=== PATIENT | female | born 1970 | race Caucasian/White ===

== ENCOUNTER 2017-04-08 19:37 | Emergency (ER) | payer MEDICARE ==
[2017-04-08 19:45] VITALS: BP 148/88; PULSE 91; RESP 20; TEMP 98.1; O2SAT 97
[2017-04-08] MEDS ORDERED: PLAQ200T PO (21:23)
[2017-04-08] MEDS ORDERED: NEUR300C PO (21:23)
[2017-04-08] MEDS ORDERED: LIPI20TA PO (21:24)
[2017-04-08] MEDS ORDERED: TRAM50TA PO (21:24)
[2017-04-08 21:30] VITALS: BP 128/87; PULSE 84; RESP 16; O2SAT 96
[2017-04-08] MEDS ORDERED: ONDANSETRON HCL 4 MG/2 ML VIAL IV PUSH ONE (21:30)
[2017-04-08] MEDS ORDERED: MORPHINE SULFATE 8 MG/ML INJ IV PUSH ONE (21:30)
[2017-04-08 21:47] LABS: AUTOMATED NEUTROPHIL # 4.9 TH/MM3 (1.8-7.7); BASOPHIL # 0.1 TH/MM3 (0-0.2); BASOPHIL % 0.6 % (0.0-2.0); EOSINOPHIL # 0.4 TH/MM3 (0-0.4); EOSINOPHIL % 4.4 % (0.0-4.0); HEMATOCRIT 47.1 % (35.0-46.0); HEMO FLAGS DIFF FINAL; LYMPH % 35.5 % (9.0-44.0); LYMPHOCYTE # 3.3 TH/MM3 (1.0-4.8); MEAN CELL VOLUME 87.7 FL (80.0-100.0); MEAN CORPUSCULAR HEMOGLOBIN 29.8 PG (27.0-34.0); MONO % 7.2 % (0.0-8.0); NEUT % 52.3 % (16.0-70.0); PLATELET COUNT 169 TH/MM3 (150-450); RED BLOOD COUNT 5.37 MIL/MM3 (4.00-5.30); RED CELL DISTRIBUTION WIDTH 12.8 % (11.6-17.2); WHITE BLOOD COUNT 9.4 TH/MM3 (4.0-11.0)
[2017-04-08 21:52] LABS: CHLORIDE 106 MEQ/L (98-107); SODIUM (NA) 138 MEQ/L (136-145)
[2017-04-08 21:56] LABS: ANION GAP 7 MEQ/L (5-15); BICARBONATE 25.5 MEQ/L (21.0-32.0); BLOOD UREA NITROGEN 17 MG/DL (7-18)
[2017-04-08 21:59] LABS: ALT (GPT) 38 U/L (10-53); AST (GOT) 33 U/L (15-37); GLOMERULAR FILTRATION RATE 40 ML/MIN (>89)
[2017-04-08 22:01] LABS: TOTAL BILIRUBIN ADULT 0.3 MG/DL (0.2-1.0)
[2017-04-08 22:02] LABS: ALKALINE PHOSPHATASE 93 U/L (45-117)
[2017-04-08 22:30] VITALS: BP 138/88; PULSE 90; RESP 18; O2SAT 96
--- NOTE | 2017-04-08 22:31 | RADRPT ---
EXAM DATE/TIME: 04/08/2017 22:02 [facility] COMPARISON: No previous studies available for comparison. INDICATIONS : Pain and swelling in 3rd -5th digit on right foot. MEDICAL HISTORY : Lupus, Cervical Ca SURGICAL HISTORY : Hysterectomy. ENCOUNTER: Initial ACUITY: 1 week PAIN SCORE: 9/10 LOCATION: Right Foot, 3rd-5th digit. FINDINGS: This presentation of the first and second distal toes. The soft tissue swelling at the third through fourth toes and destruction. No fracture or dislocation. CONCLUSION: 1. Soft tissue swelling of the third through fifth toes. Previous partial amputation first and second toes. Nicholas Woo MD on April 08, 2017 at 22:29 Board Certified Radiologist. This report was verified electronically.
--- NOTE | 2017-04-08 22:49 | PD ---
HPI . Right foot pain Chief Complaint: Pain: Acute or Chronic Time Seen by Provider: 21:10 Travel History International Travel<30 days: No Contact w/Intl Traveler<30days: No Traveled to known affect area: No History of Present Illness HPI This patient is a 47 year old female with PMH of Lupus and RA presents to [facility] ED with 5 days of increasing right foot pain. Her first and second toes were amputated earlier this year due to vascular compromise. The pain starts around the 3rd-5th remaining digits and extends proximally up her right foot. The pain is described as numbness, tingling and burning. The pain is constant and is rated a 10/10. She has noticed some swelling as well and complains of cold extremity. She denies any trauma or rash. She denies any fevers or chills but admits to diaphoresis and nausea. She is scheduled to meet with a vascular surgeon May 06. She saw her PCP on Wednesday who prescribed Tramadol which she says has not been working for the pain. She has a history of smoking, 1PDD, denies any alcohol use. She is allergic to Sulfa drugs. PFSH Past Medical History Arthritis: Yes (RA ) Autoimmune Disease: Yes (Lupus, Autoimmune CAH ) Cancer: Yes (Cervical cancer) High Cholesterol: Yes Diminished Hearing: No Tetanus Vaccination: < 5 Years Influenza Vaccination: No ?: Unknown Menopausal: Yes Tubal Ligation: Yes Past Surgical History Appendectomy: Yes Coronary Stent: Yes (Iliac artery stent ) Hysterectomy: Yes (Full and partial ) Other Surgery: Yes (Right foot big toe and 2nd toe amputation) Social History Alcohol Use: No Tobacco Use: Yes (1 ppd) Substance Use: No Allergies-Medications (Allergen,Severity, Reaction): Coded Allergies: Sulfa (Sulfonamide Antibiotics) (Verified Allergy, Unknown, 04/08/17) Reported Meds & Prescriptions Reported Meds & Active Scripts Active Reported Tramadol (Tramadol HCl) 50 Mg Tab 50 Mg PO Q6H PRN Lipitor (Atorvastatin Calcium) 20 Mg Tab 20 Mg PO HS Plaquenil (Hydroxychloroquine Sulfate) 200 Mg Tab 200 Mg PO BID Take with food Neurontin (Gabapentin) 300 Mg Cap 300 Mg PO TID Review of Systems Except as stated in HPI: all other systems reviewed are Neg General / Constitutional: No: Fever, Chills Cardiovascular: No: Chest Pain or Discomfort Respiratory: No: Shortness of Breath Gastrointestinal: Positive: Nausea, No: Vomiting, Diarrhea, Abdominal Pain Musculoskeletal: Positive: Edema, Pain, No: Weakness Skin: Positive Change in Pigmentation (Purple), No Rash Physical Exam Narrative GENERAL: Patient is seen on exam bed, she is in no acute distress. She is alert and oriented x3 SKIN: Right 4th-5th digit cyanotic and edematous, cool to the touch, right distal foot slightly edematous but not erythematous. HEAD: Atraumatic. Normocephalic. EYES: Pupils equal and round. ENT: No nasal bleeding or discharge. Mucous membranes pink and moist. NECK: Trachea midline. CARDIOVASCULAR: Regular rate and rhythm. RESPIRATORY: No accessory muscle use. Clear to auscultation bilaterally. GASTROINTESTINAL: Abdomen soft, non-tender, nondistended. MUSCULOSKELETAL: No obvious deformities. No edema. NEUROLOGICAL: Awake and alert. No obvious cranial nerve deficits. Motor grossly within normal limits. Normal speech. PSYCHIATRIC: Appropriate mood and affect; insight and judgment normal. Data Data Last Documented VS Vital Signs Date Time Temp Pulse Resp B/P Pulse Ox O2 Delivery O2 Flow Rate FiO2 04/08/17 22:30 90 18 138/88 96 Room Air 04/08/17 19:45 98.1 Orders Foot, Complete (Vjk0tex) (04/08/17 21:24) Complete Blood Count With Diff (04/08/17 21:24) Comprehensive Metabolic Panel (04/08/17 21:24) Blood Culture (04/08/17 21:24) ^ Saline Lock (04/08/17 21:24) Morphine Inj (Morphine Inj) (04/08/17 21:30) Ondansetron Inj (Zofran Inj) (04/08/17 21:30) Cta Runoff W Iv Contrast W 3d (04/08/17 ) Iohexol 350 Inj (Omnipaque 350 Inj) (04/08/17 23:04) Labs Laboratory Tests Test 04/08/17 21:35 White Blood Count 9.4 TH/MM3 Red Blood Count 5.37 MIL/MM3 Hemoglobin 16.0 GM/DL Hematocrit 47.1 % Mean Corpuscular Volume 87.7 FL Mean Corpuscular Hemoglobin 29.8 PG Mean Corpuscular Hemoglobin 34.0 % Concent Red Cell Distribution Width 12.8 % Platelet Count 169 TH/MM3 Mean Platelet Volume 8.6 FL Neutrophils (%) (Auto) 52.3 % Lymphocytes (%) (Auto) 35.5 % Monocytes (%) (Auto) 7.2 % Eosinophils (%) (Auto) 4.4 % Basophils (%) (Auto) 0.6 % Neutrophils # (Auto) 4.9 TH/MM3 Lymphocytes # (Auto) 3.3 TH/MM3 Monocytes # (Auto) 0.7 TH/MM3 Eosinophils # (Auto) 0.4 TH/MM3 Basophils # (Auto) 0.1 TH/MM3 CBC Comment DIFF FINAL Differential Comment Sodium Level 138 MEQ/L Potassium Level 4.0 MEQ/L Chloride Level 106 MEQ/L Carbon Dioxide Level 25.5 MEQ/L Anion Gap 7 MEQ/L Blood Urea Nitrogen 17 MG/DL Creatinine 1.40 MG/DL Estimat Glomerular Filtration 40 ML/MIN Rate Random Glucose 102 MG/DL Calcium Level 9.5 MG/DL Total Bilirubin 0.3 MG/DL Aspartate Amino Transf 33 U/L (AST/SGOT) Alanine Aminotransferase 38 U/L (ALT/SGPT) Alkaline Phosphatase 93 U/L Total Protein 7.9 GM/DL Albumin 3.9 GM/DL [facility] Medical Decision Making Medical Screen Exam Complete: Yes Emergency Medical Condition: Yes Medical Record Reviewed: No Differential Diagnosis Cellulitis, osteomyelitis, vasculitis, acute ischemia Narrative Course Patient presents for evaluation treatment of pain in her right third, fourth and fifth toes. She has had previous amputation of the first and second toes because of vascular disease. She states that her third, fourth and fifth toes now feel very similar to the way that her first and second toes felt prior to amputation. Her exam is compatible with vascular compromise. The toes are discolored and cool to the touch. CBC & BMP Diagram 04/08/17 21:35 Last Impressions Foot X-Ray 04/08/172123 Signed Impressions: Service Date/Time: March 22:02 - CONCLUSION: 1. Soft tissue swelling of the third through fifth toes. Previous partial amputation first and second toes. Nicholas Woo MD Patient had the CT angiogram done prior to departure but declined waiting for the results. She was signed out AMA. Diagnosis Primary Impression: Right foot pain Disposition: 07 AGAINST MEDICAL ADVICE Fannie Ferguson MD Apr 08, 2017 22:49
[2017-04-08] MEDS ORDERED: IOHEXOL 350 MG/ML 10 ML VIAL (for RAD DIAG) IV ONE (23:04)
--- NOTE | 2017-04-09 01:08 | RADRPT ---
EXAM DATE/TIME: 04/08/2017 22:24 [facility] COMPARISON: No previous studies available for comparison. INDICATIONS : 3rd and 4th toes turning purple status post iliac stent placement in February. IV CONTRAST: 100 cc Omnipaque 350 (iohexol) IV RADIATION DOSE: 19.63 CTDIvol (mGy) MEDICAL HISTORY : Peripheral vascular disease. Lupus. Cervical cancer SURGICAL HISTORY : Appendectomy. Hysterectomy.iliac stent, big and 2nd toe amputation right side ENCOUNTER: Initial ACUITY: 2 months PAIN SCALE: 10/10 LOCATION: Right foot TECHNIQUE: Volumetric scanning was performed using a multi-row detector CT scanner. The data was post processed with a variety of visualization algorithms including full volume maximum intensity projection, multi -planar sliding thin slab reformation, curved planar reformation, and surface rendering techniques. Using automated exposure control and adjustment of the mA and/or kV according to patient size, radiat ion dose was kept as low as reasonably achievable to obtain optimal diagnostic quality images. DICO M format image data is available electronically for review and comparison. FINDINGS: ABDOMINAL AORTA: Infrarenal abdominal aortic aneurysm measuring 3-3.6 cm in diameter with regional mural thrombus. The re is ectasia of the distal abdominal aorta just above the bifurcation measuring approximately 2.4 cm in diameter. Single right with a main and accessory left renal artery. All 3 are patent. Mesenteric vessels are patent. Pelvis: Right common iliac artery stent shows some intimal hyperplasia proximally with some luminal narrowing in this region of uncertain clinical significance. Iliacs are otherwise patent Right LEG: Profunda and SFA are patent. Popliteal is patent down to the trifurcation with three-vessel runoff . LEFT LEG: Profunda and SFA are patent. Popliteal is patent down to the trifurcation with three-vessel runoff MISCELLANEOUS: Mild pectus excavating deformity of the lower chest. Diminished hepatic attenuation suggesting some d egree of fatty infiltration. Venous collaterals are seen in the left kidney which appear to emanate f rom the left gonadal vein. There are varicosities in the left pelvis surrounding what appears to be a slightly prominent left ovary. CONCLUSION: 1. 3 x 3.6 cm infrarenal abdominal aortic aneurysm with mural thrombus. More inferiorly, there is rocael e ectasia of the distal abdominal aorta just above the bifurcation measuring 2.4 cm in diameter. 2. Right common iliac artery stent shows some intimal hyperplasia proximally. On the images provided, this may be significant enough to limit flow to the right lower extremity. Catheter angiography with pressure measurements could be obtained for confirmation and treatment if clinically warranted. 3. Otherwise, the inflow is widely patent on the left. Outflow is patent bilaterally with three-vesse l runoff. 4. Single right with a main and accessory left renal artery. All 3 are patent. 5. 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 Perinephric collaterals emanate from the gonadal vein and reestablish centra l drainage. In the appropriate clinical setting, the pelvic varicosities can be associated with pelvi c congestion syndrome. 6. Hepatic fatty infiltration. 7. Pectus excavating deformity of the lower chest. Samuel Kathleen MD on April 09, 2017 at 0:50 Board Certified Radiologist. This report was verified electronically.
== END 2017-04-08 23:39 | disposition left against medical advice (07) ==
LOC: PHED 19:37
DX: M79.671 Pain in right foot (principal); M32.9 Systemic lupus erythematosus, unspecified; F17.200 Nicotine dependence, unspecified, uncomplicated
CPT/HCPCS: 73630; 75635; 80053; 85025; 87040; 96374; 96375; 99285; J2270; J2405; Q9967

== ENCOUNTER 2017-04-25 09:19 | Emergency (ER) | payer MEDICARE ==
[~2017-04-25] VITALS: Ht 165.1 cm; Wt 96.0 kg
[~2017-04-25 09:19] MED LIST: LIPI20TA PO; NEUR300C PO; PLAQ200T PO; TRAM50TA PO
[2017-04-25 09:25] VITALS: BP 164/89; PULSE 98; RESP 16; TEMP 97.6; O2SAT 97
[2017-04-25] MEDS ORDERED: IBUP200C PO (09:48)
[2017-04-25] MEDS ORDERED: PLAV75TA29 PO (09:48)
[2017-04-25] MEDS ORDERED: MUPI2%T TOPICAL (09:57)
[2017-04-25] MEDS ORDERED: CLIN1CAP5 PO (09:57)
--- NOTE | 2017-04-25 09:58 | PD ---
HPI Chief Complaint: Skin Problem Time Seen by Provider: 09:50 Travel History International Travel<30 days: No Contact w/Intl Traveler<30days: No Traveled to known affect area: No History of Present Illness HPI Patient presents with complaints of right fourth toe infection. Reports a history of multiple amputations on the same foot. Denies any nausea vomiting diarrhea or fever. Denies any rash. 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 PFSH Past Medical History Hx Anticoagulant Therapy: Yes (plavix) Arthritis: Yes (RA ) Autoimmune Disease: Yes (Lupus, Autoimmune CAH ) Cancer: Yes (Cervical cancer) High Cholesterol: Yes Diabetes: No Diminished Hearing: No Immunizations Current: Yes Tetanus Vaccination: Unknown Influenza Vaccination: No ?: Not Menopausal: Yes Tubal Ligation: Yes Past Surgical History Appendectomy: Yes Coronary Stent: Yes (Right Iliac artery stent x2, balloon) Gynecologic Surgery: Yes (x 4 for cancer) Hysterectomy: Yes (partial then full) Other Surgery: Yes (Right foot big toe and 2nd toe amputation) Social History Alcohol Use: No Tobacco Use: Yes (1/2 ppd) Substance Use: No Allergies-Medications (Allergen,Severity, Reaction): Coded Allergies: Sulfa (Sulfonamide Antibiotics) (Verified Allergy, Unknown, 04/25/17) Reported Meds & Prescriptions Reported Meds & Active Scripts Active Reported Plavix (Clopidogrel Bisulfate) 75 Mg Tab 75 Mg PO DAILY Ibuprofen 200 Mg Cap 800 Mg PO Q6-8HRS PRN Tramadol (Tramadol HCl) 50 Mg Tab 50 Mg PO Q6H PRN Lipitor (Atorvastatin Calcium) 20 Mg Tab 20 Mg PO HS Plaquenil (Hydroxychloroquine Sulfate) 200 Mg Tab 200 Mg PO BID Take with food Neurontin (Gabapentin) 300 Mg Cap 300 Mg PO TID Review of Systems General / Constitutional: No: Fever Eyes: No: Visual changes HENT: No: Headaches Cardiovascular: No: Chest Pain or Discomfort Respiratory: No: Shortness of Breath Gastrointestinal: No: Abdominal Pain Genitourinary: No: Dysuria Musculoskeletal: No: Pain Skin: No Rash Neurologic: No: Weakness Psychiatric: No: Depression Endocrine: No: Polydipsia Hematologic/Lymphatic: No: Easy Bruising Physical Exam Narrative GENERAL: Well-nourished, well-developed patient. SKIN: Focused skin assessment warm/dry. HEAD: Normocephalic. EYES: No scleral icterus. No injection or drainage. NECK: Supple, trachea midline. No JVD or lymphadenopathy. CARDIOVASCULAR: Regular rate and rhythm without murmurs, gallops, or rubs. RESPIRATORY: Breath sounds equal bilaterally. No accessory muscle use. GASTROINTESTINAL: Abdomen soft, non-tender, nondistended. MUSCULOSKELETAL: No cyanosis, or edema. BACK: Nontender without obvious deformity. No CVA tenderness. Right foot with multiple toe amputations the fourth toe is draining mildly with open wounds about the toe. Data Data Last Documented VS Vital Signs Date Time Temp Pulse Resp B/P (MAP) Pulse Ox O2 Delivery O2 Flow Rate FiO2 04/25/17 09:25 97.6 98 16 164/89 (114) 97 Orders Orders Wound Culture And Gram Stain (04/25/17 09:50) MDM Medical Decision Making Medical Screen Exam Complete: Yes Emergency Medical Condition: Yes Differential Diagnosis Cardiovascular disease, cellulitis, necrosis Narrative Course Assessment and plan discussed with patient at bedside Diagnosis Primary Impression: Abrasion of fourth toe, right, infected Qualified Codes: S90.414A - Abrasion, right lesser toe(s), initial encounter; L08.9 - Local infection of the skin and subcutaneous tissue, unspecified Patient Instructions: General Instructions Additional Instructions: Encouraged to keep the toe clean and dry, encouraged to follow-up with her surgeon encouraged to return to emergency with any onset of new symptoms Med/Other Pt SpecificInfo: Prescription(s) given Scripts Clindamycin (Clindamycin) 150 Mg Cap 300 MG PO Q6H for Infection for 10 Days, CAP 0 Refills Prov: Parish Lawler MD 04/25/17 Mupirocin Topical (Bactroban Topical) 22 Gm Cream 1 APPLIC TOPICAL TID for infection, #1 TUBE 0 Refills Prov: Parish Lawler MD 04/25/17 Disposition: 01 DISCHARGE HOME Condition: Good Parish Lawler MD Apr 25, 2017 09:58
== END 2017-04-25 10:09 | disposition home or self-care (01) ==
LOC: PHED 09:19
DX: S90.414A Abrasion, right lesser toe(s), initial encounter (principal); L08.9 Local infection of the skin and subcutaneous tissue, unspecified; M32.9 Systemic lupus erythematosus, unspecified; Z85.41 Personal history of malignant neoplasm of cervix uteri; Z95.5 Presence of coronary angioplasty implant and graft; X58.XXXA Exposure to other specified factors, initial encounter
CPT/HCPCS: 86403; 87070; 87077; 87205; 99284

== ENCOUNTER 2018-01-14 18:34 | Emergency (ER) | payer MEDICARE ==
[~2018-01-14] VITALS: Ht 165.1 cm; Wt 100.2 kg
[~2018-01-14 18:34] MED LIST changes: +CLIN150C14 PO; +IBUP200C PO; +MUPI2%T TOPICAL; +PLAV75TA29 PO
[2018-01-14 18:38] VITALS: BP 164/104; PULSE 107; RESP 18; TEMP 98.4; O2SAT 94
[2018-01-14] MEDS ORDERED: LIDOCAINE HCL 1% 30 ML VIAL INFIL ONE (19:00)
[2018-01-14] MEDS ORDERED: BUPIVACAINE HCL PF 0.5% 10 ML VIAL INFIL ONE (19:00)
--- NOTE | 2018-01-14 19:00 | PD ---
HPI Chief Complaint: Injury Time Seen by Provider: 18:43 Travel History International Travel<30 days: No Contact w/Intl Traveler<30days: No Traveled to known affect area: No History of Present Illness HPI 48-year-old female presents to the emergency department for evaluation after she dislodged her left great toenail. She states she stubbed it on a door causing her toenail to rise up. Patient denies any other injury. Current pain is 10/10, throbbing, without radiation. Exacerbating factor is touching the area, ambulation. Alleviating factor is keeping the foot still. Mild severity. PFSH Past Medical History Hx Anticoagulant Therapy: Yes (plavix) Arthritis: Yes (RA ) Autoimmune Disease: Yes (Lupus, Autoimmune CAH ) Cancer: Yes (Cervical cancer) High Cholesterol: Yes Diabetes: No Diminished Hearing: No Immunizations Current: Yes Tetanus Vaccination: > 5 Years ?: Not Menopausal: Yes Tubal Ligation: Yes Past Surgical History Appendectomy: Yes Cardiac Surgery: Yes (FEM POP BYPASS) Coronary Stent: Yes (Right Iliac artery stent x2, balloon) Gynecologic Surgery: Yes (x 4 for cancer) Hysterectomy: Yes Other Surgery: Yes (Right foot big toe and 2nd toe amputation) Social History Alcohol Use: No Tobacco Use: Yes (1/2 ppd) Substance Use: No Allergies-Medications (Allergen,Severity, Reaction): Coded Allergies: Sulfa (Sulfonamide Antibiotics) (Verified Allergy, Unknown, 01/14/18) Reported Meds & Prescriptions Reported Meds & Active Scripts Active Reported Ibuprofen 200 Mg Cap 800 Mg PO Q6-8HRS PRN Plaquenil (Hydroxychloroquine Sulfate) 200 Mg Tab 200 Mg PO BID Take with food Neurontin (Gabapentin) 300 Mg Cap 300 Mg PO TID Review of Systems Except as stated in HPI: all other systems reviewed are Neg Physical Exam Narrative GENERAL: Well-nourished, well-developed female patient, ambulatory. Afebrile SKIN: Focused skin assessment warm/dry. HEAD: Normocephalic. Atraumatic EYES: No scleral icterus. No injection or drainage. NECK: Supple, trachea midline. No JVD or lymphadenopathy. CARDIOVASCULAR: Regular rate and rhythm without murmurs, gallops, or rubs. Left pedal pulse is 2+ RESPIRATORY: Breath sounds equal bilaterally. No accessory muscle use. Lung sounds are clear to auscultation. GASTROINTESTINAL: Abdomen soft, non-tender, nondistended. MUSCULOSKELETAL: No cyanosis, or edema. Left great toenail is dislodged off the nail bed. Patient has tenderness to palpation of this area. No bony point tenderness. BACK: Nontender without obvious deformity. No CVA tenderness. Data Data Last Documented VS Vital Signs Date Time Temp Pulse Resp B/P (MAP) Pulse Ox O2 Delivery O2 Flow Rate FiO2 01/14/18 18:48 Room Air 01/14/18 18:38 98.4 107 18 164/104 (124) 94 Orders Orders Bupivacaine Pf 0.5% Inj (Marcaine Pf 0.5 (01/14/18 19:00) Lidocaine 1% Inj (Xylocaine 1% Inj) (01/14/18 19:00) Lidocaine Pf 1% Inj (Xylocaine-Mpf 1% In (01/14/18 19:04) Splint Or Brace Apply/Monitor (01/14/18 19:53) MDM Medical Decision Making Medical Screen Exam Complete: Yes Emergency Medical Condition: Yes Medical Record Reviewed: Yes Differential Diagnosis Nail dislodgment versus contusion versus sprain Narrative Course 48-year-old female presents to the emergency department after she stubbed her left great toe, dislodging the toenail. She has no bony point tenderness to palpation. Patient gives verbal consent for digital block and removal of the great toenail. Wound care is completed. Patient instructed to continue ibuprofen for pain. She is provided a postop shoe. The patient was discharged in stable condition with instructions, including return instructions and follow up instructions. Procedures Procedure Narrative LOCATION: Left great toe The great toe was prepped with Betadine. A digital block was performed with 1% lidocaine and 0.5% Marcaine. The wound was copiously irrigated and explored without evidence of foreign body, tendon injury or neurovascular injury. The great toenail was easily removed with hemostats. Antibiotic ointment is placed over the nailbed. A sterile dressing was applied. The patient was advised to keep the dressing clean and dry. Patient tolerated the procedure well. Diagnosis Primary Impression: Toenail avulsion Qualified Codes: S91.209A - Unspecified open wound of unspecified toe(s) with damage to nail, initial encounter Referrals: Primary Care Physician call for appointment Patient Instructions: General Instructions, Toenail/Fingernail Removal (DC) Departure Forms: Tests/Procedures, Work Release Enter return to work date: January 17, 2018 Additional Instructions: Clean twice daily with soap and water and apply [id number] antibiotic ointment. Keep clean and dry. Ibuprofen for pain. Wear postop shoe as needed for support. Follow-up with a primary care physician. Return to the emergency department for any acute worsening of symptoms. Med/Other Pt SpecificInfo: No Change to Meds Disposition: 01 DISCHARGE HOME Condition: Stable Maylin Ontiveros January 14, 2018 19:00
[2018-01-14] MEDS ORDERED: LIDOCAINE HCL 1% PF 30 ML VIAL ONE (19:04)
== END 2018-01-14 20:17 | disposition home or self-care (01) ==
LOC: PHEFT 18:34
DX: S91.202A Unspecified open wound of left great toe with damage to nail, initial encounter (principal); W22.8XXA Striking against or struck by other objects, initial encounter; M32.9 Systemic lupus erythematosus, unspecified; M06.9 Rheumatoid arthritis, unspecified; E78.00 Pure hypercholesterolemia, unspecified; F17.200 Nicotine dependence, unspecified, uncomplicated; Z85.41 Personal history of malignant neoplasm of cervix uteri
CPT/HCPCS: 11730; 99283; L3260